=== PATIENT | male | born 1975 | race Caucasian/White ===

== ENCOUNTER 2017-09-16 08:49 | Emergency (ER) | payer OTHER ==
[~2017-09-16] VITALS: Ht 167.6 cm; Wt 81.6 kg
== END 2017-09-16 13:12 | disposition home or self-care (01) ==
LOC: ER 08:49
DX: J45.998 Other asthma (principal)

== ENCOUNTER 2021-02-17 08:00 | Outpatient (CLI) | payer OTHER | END 2021-02-17 08:30 | disposition home or self-care (01) | LOC: PPH VACUNA 08:00 | DX: Z23 Encounter for immunization (principal) ==

== ENCOUNTER 2021-03-10 08:00 | Outpatient (CLI) | payer OTHER | END 2021-03-10 08:30 | disposition home or self-care (01) | LOC: PPH VACUNA 08:00 | DX: Z23 Encounter for immunization (principal) ==

== ENCOUNTER 2023-03-01 09:26 | Inpatient (IN) | payer OTHER ==
[~2023-03-01] VITALS: Ht 170.2 cm; Wt 111.1 kg
[2023-03-02] MEDS ORDERED: PROAIR RESPICL90 MCG IH (09:28)
[2023-03-04] MEDS ORDERED: ALBUTEROL2.5 MG/3 M (15:16)
[2023-03-06] MEDS ORDERED: INTESTINEX680 M1 PO (12:32)
[2023-03-06] MEDS ORDERED: LEVSIN0.125 MG PO (12:32)
[2023-03-06] MEDS ORDERED: ACETAMINOPHEN500 M2 PO (12:32)
[2023-03-06] MEDS ORDERED: NEURONTIN300 MG PO (12:33)
[2023-03-06] MEDS ORDERED: MIRALAX17 GM PO (12:33)
== END 2023-03-06 13:59 | disposition home or self-care (01) | DRG 331 ==
LOC: O/R 03-04 09:34 → SURH 03-04 09:34
PROVIDERS: ADMIT Surgery; ATTEND Surgery
PROC: 07BC4ZZ Excision of Pelvis Lymphatic, Percutaneous Endoscopic Approach (ICD-10-PCS; 2023-03-04)
PROC: 07BB4ZZ Excision of Mesenteric Lymphatic, Percutaneous Endoscopic Approach (ICD-10-PCS; 2023-03-04)
PROC: 0DBL4ZZ Excision of Transverse Colon, Percutaneous Endoscopic Approach (ICD-10-PCS; 2023-03-04)
PROC: 0DTF4ZZ Resection of Right Large Intestine, Percutaneous Endoscopic Approach (ICD-10-PCS; principal; 2023-03-04 15:30)
DX: D12.2 Benign neoplasm of ascending colon (principal); D17.5 Benign lipomatous neoplasm of intra-abdominal organs; D12.3 Benign neoplasm of transverse colon; R59.0 Localized enlarged lymph nodes; R11.11 Vomiting without nausea